=== PATIENT | male | born 1980 | race Caucasian/White ===

== ENCOUNTER 2020-12-04 12:53 | Outpatient (CLI) | payer OTHER ==
[2020-12-04 13:45] VITALS: BP 115/78
--- NOTE | 2020-12-04 13:45 | SLEEP CARE CONSULTATION ---
Information from patient questionnaire entered by Jossie Bullock. I have reviewed and concur with the information entered by Jossie Bullock. This document represents the service I personally performed and the decisions made by me, Nilsa Mcdonnell ARNP. History of Present Illness Service Date and Time: 12/04/2020 1253 Reason for Visit: New patient Chief Complaint: reports: Snoring, Observed pauses in breathing (few) Date of Onset: 6 years Usual bedtime: 2230 Time it takes to fall asleep: 10-30 minutes Snores at night: Yes Observed to quit breathing while asleep: Yes Sleeps alone due to snoring: Yes Number of times waking at night: 1-3 Reasons for waking at night: reports: Bathroom, Other (noise, pets). denies: Choking, Snoring, Gasping for air Toss, Turn, or Twitch while sleeping: Yes (mainly when warm and mostly due to restless legs) Recalls having dreams: Yes Usually gets out of bed at: [id number] Feels refreshed in the morning: Yes Morning headache: No Sleepy or fatigued during the day: No Ever fallen asleep while driving: No Takes day naps: No Dreams during day naps: Yes Prior sleep studies: No Additional HPI information: I had the pleasure of seeing TAYLOR PORTER today regarding the possibility of him having a sleep disorder. His current complaint is snoring. He had a recent checkup with PCP and was having some acid reflux stuff. During the conversation they talked about his sleeping and he does snores and has pauses in breathing noted by his . She does sleep in separate rooms because his is sensitive to noises. He states he typically snores more on his back. He states normally he feels he sleeps well and wakes up feeling rested. He gets up 1-2 times a night on average. He has never woke himself up gasping for air or choking. He denies drowsy driving. He states his parents both snore and his father has sleep apnea treated by a PAP machine. 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 Patient is and lives in [place]. Have you smoked in the past 12 months: No Cigarettes per day (20/pack): 20 Years of smokin Quit date: 2014 Smoking Pack Years: 8.0 Alcohol use: Yes Alcohol amount and frequency: 1-2 beers, 4 days/week Caffeine use: Yes Caffeine amount and frequency: 1 coffee, 1 coke each day Family History Family history of sleep disordered breathing: Yes Family Hx Sleep Apnea: Mother: Snoring, Father: Snoring, Sleep apnea - Treated, Grandparent: Snoring Allergies and Home Medications Drug allergies reviewed: Yes (NKDA) Home medication list reviewed: Yes (Vitamin D, D3, C, Bcomplex, calcium) Review of Systems Cardiovascular: denies: high blood pressure Gastrointestinal: reports: heartburn Neurological: denies: headaches Psychiatric: reports: anxiety Ear/Nose/Throat: reports: nasal congestion, wisdom teeth removed. denies: tonsillectomy Endocrine: denies: thyroid disease Immunologic: reports: allergies to food or environment (seasonal allergies) Physical Exam Blood Pressure: 115/78 Cuff size: wrist Heart Rate: 65 O2 Saturation: 93 Height: 5 ft 11 in Weight: 177 lb Body Mass Index: 24.7 BMI Classification: Healthy weight Neck circumference: 16.5 (inches) Nostrils: patent to airflow Mouth and throat: narrow oropharynx Soft palate: long Hard palate: arched Uvula: normal Uvula visualization: 50% Mallampati Class II Tongue: enlarged in size with teeth hernadez on lateral edges Tonsils: small Neck: normal w/o lymphadenopathy or thyromegaly Heart: regular rate and rhythm Lungs: clear bilaterally Impression and Plan 1. Suspected Obstructive Sleep Apnea-Hypopnea Syndrome, as suggested by a history of loud and irregular snoring and observed cessation of breath while asleep. Narrow oropharynx and obesity are common predisposing factors for obstructive sleep apnea-hypopnea syndrome. I recommend proceeding to polysomnography to confirm the diagnosis and to assess severity. If the patient has significant sleep disordered breathing, a manual CPAP titration study will also be performed to find the optimal treatment pressure. I informed the patient of what the sleep studies involve and after some discussion, obtained agreement to proceed. The pathophysiology of obstructive sleep apnea-hypopnea syndrome was discussed with the patient and health risks of cardiovascular and cerebrov ascular disease if not treated. AAS brochure for obstructive sleep apnea- hypopnea syndrome given and reviewed. Risks of drowsy driving discussed in detail and patient advised to avoid long distance driving and to lathe puller at the first sign of drowsiness. Patient agreed to plan. * Schedule polysomnography +- manual CPAP titration study and return in 1-2 weeks after the study to discuss result and initiate therapy. * Avoid long distance driving or driving when feeling sleepy. * Avoid alcohol, sedative and muscle relaxant around bedtime. * Maintain a healthy weight. * Review instructions provided by trained office staff on how to prepare for the sleep study. * Return for follow-up after sleep study completed. Visit Type: In Office Time Spent with Patient (minutes): 30 Provider Statement: I spent 100% of the Face to Face Visit with the patient with greater than 50% spent counseling the patient and coordination of care.
== END 2020-12-04 12:54 | disposition home or self-care (01) ==
LOC: SC 12:53
PROVIDERS: ATTEND Nurse Practitioner Family
DX: R06.83 Snoring (principal); R06.81 Apnea, not elsewhere classified
CPT/HCPCS: 99203; 99212